=== PATIENT | female | born 1985 | race Caucasian/White ===

== ENCOUNTER 2025-04-12 11:52 | Emergency (ER) | payer BC, SELFPAY ==
--- NOTE | ~2025-04-12 | XR_ITS ---
EXAMINATION: XR toe 1st RT min 2V, 04/12/2025 12:23 [employer] HISTORY: fell down stair today. Pain to medial right great toe COMPARISON: No comparisons available. Findings: No acute fracture or malalignment. No significant degenerative changes. Soft tissues unremarkable. Impression: No acute fracture or malalignment. Reviewed, dictated and finalized at location P. PLANER Impression: No acute fracture or malalignment.
[2025-04-12 12:13] VITALS: BP 102/70; PULSE 78; RESP 16; TEMP 36.6; O2SAT 99
--- NOTE | 2025-04-12 12:39 | ED.LOWEXIN ---
HPI - Extremity Injury (Lower) General Chief Complaint: Extremity Injury, Lower Stated Complaint: fall Time Seen by Provider: 04/12/25 12:14 Source: patient and RN notes reviewed Mode of arrival: wheelchair Limitations: no limitations History of Present Illness HPI Narrative: 39-year-old female patient presents today with an injury to her right 1st toe. She fell down some stairs at home today hyper flexing her toe. Denies numbness or tingling. Currently rates her pain at rest 3/10, which increases 8/10 with movement. No OTC treatment prior to arrival. Related Data Home Medications ?Medication ?Instructions ?Recorded ?Confirmed ?Last Taken ?Type No Home Medications 04/12/25 04/12/25 Unknown History Allergies Allergy/AdvReac Type Severity Reaction Status Date / Time No Known Allergies Allergy Verified 04/12/25 12:13 PMFSH Comments At time of signature, I have reviewed and agree with nursing past medical, surgical, social and family history unless otherwise noted. Please see nursing chart for further information. There is no relevant family history pertinent to the presenting complaint Exam Narrative: GENERAL: Well-appearing, well-nourished, and in no acute distress. HEAD: Normocephalic, atraumatic. EYES: EOMI. No redness or drainage. Conjunctivae normal. ENT: Mucous membranes pink and moist. NECK: Normal AROM. CHEST: No respiratory distress. EXTREMITIES: Right great toe: Tenderness to the base of the 1st toe with some mild ecchymosis and edema. Distal sensation intact. Capillary refill normal. Pedal pulse normal. No tenderness to the remainder of the toes or foot. Decreased range of motion of the toe due to pain. Toenail unaffected. SKIN: Warm, dry, no rash. Capillary refill normal. Normal skin turgor. NEURO: No focal deficits. Alert and oriented x3. Gait steady. PSYCH: Normal affect. No signs of depression or anxiety. Course Course Level of Care: Express Care Visit Vital Signs Vital signs: Vital Signs Temperature 97.8 F 04/12/25 12:13 Pulse Rate 78 04/12/25 12:13 Respiratory Rate 16 04/12/25 12:13 Blood Pressure 102/70 04/12/25 12:13 Pulse Oximetry 99 04/12/25 12:13 Oxygen Delivery Room Air 04/12/25 12:13 Temperature 97.8 F 04/12/25 12:13 Pulse Rate 78 04/12/25 12:13 Respiratory Rate 16 04/12/25 12:13 Blood Pressure 102/70 04/12/25 12:13 Pulse Oximetry 99 04/12/25 12:13 Oxygen Delivery Room Air 04/12/25 12:13 Reviewed MDM - Extremity Injury (Lower) MDM Narrative Medical decision making narrative: 39-year-old female patient presents today with an injury to her right 1st toe. She fell down some stairs at home today hyper flexing her toe. Denies numbness or tingling. Currently rates her pain at rest 3/10, which increases 8/10 with movement. No OTC treatment prior to arrival. Upon exam,Tenderness to the base of the 1st toe with some mild ecchymosis and edema. Distal sensation intact. Capillary refill normal. Pedal pulse normal. No tenderness to the remainder of the toes or foot. Decreased range of motion of the toe due to pain. Toenail unaffected. Toe x-ray is negative. Dose of ibuprofen given for discomfort. Vital signs stable. Patient agrees with plan. Anticipatory guidance given. Differential Diagnosis Differential diagnosis: Likely fracture of toe and other (Contusion, sprain) Imaging Data Radiologist's impression: ITS Impressions Toe X-Ray 04/12/25 12:31 Impression: No acute fracture or malalignment. Critical Care Time Critical Care Time Critical Care Time: No Discharge Plan Discharge Clinical Impression: Sprain of toe Patient Disposition: Home Condition: Stable Instructions: Foot Sprain (ED) Additional Instructions: Your x-ray is negative for fracture. Elevate and ice the toe. Apply ice. Taking anti-inflammatories such as Aleve or ibuprofen to help with discomfort. Follow-up with your PCP in 7-10 days if symptoms are not improving. Patient Language: Grenadian Prescriptions: No Action No Home Medications Follow-up/Referrals: UNKNOWN,DOCTOR [Primary Care Provider] Time of Disposition: 12:44
[2025-04-12] MEDS: IBUPROFEN 600 MG TABLET PO (12:40)
== END 2025-04-12 12:55 | disposition home or self-care (01) ==
PROVIDERS: Emergency Provider Nurse Practitioner
DX: S93.501A Unspecified sprain of right great toe, initial encounter (principal); W10.9XXA Fall (on) (from) unspecified stairs and steps, initial encounter
CPT/HCPCS: 73660; 99203; A9270; G0463